=== PATIENT | male | born 1990 | race Caucasian/White ===

== ENCOUNTER 2021-02-07 15:34 | Emergency (ER) | payer MEDICAID ==
[~2021-02-07] VITALS: Ht 190.5 cm; Wt 117.9 kg
[2021-02-07 15:35] VITALS: BP 156/69
--- NOTE | 2021-02-07 15:36 | NUR ---
30 YO MALE BIBA FROM HOME C/O COFFEE GROUND EMESIS X1 DAY, 8/10 [place] PAIN X1 DAY, ETOH. PATIENT DRANK 1 BOTTLE OF GIN, 20 WHITE CLAWS YESTERDAY. PATIENT HAS BEEN SOBER FOR 2 YEARS, RELAPSED YESTERDAY. PATIENT APPEARS DIAPHORETIC, NO SHAKES OBSERVED, TACHYCARDIC, AND HYPERTENSIVE AT THIS TIME. ABDOMEN SOFT, FLAT, NON TENDER. BS ACTIVE X4. A&OX4, STEADY GAIT. RR EVEN AND UNLABORED. PMH ANXIETY NKDA
--- NOTE | 2021-02-07 15:45 | NUR ---
Tino LAINEZA via w/c to bed 05.
--- NOTE | 2021-02-07 15:46 | NUR ---
Wai cano in ED - 02/07/21 at 1913 by [facility] BIBA BLS TO ER BED 5
[2021-02-07] MEDS: hydrOXYzine 50 MG/ML VIAL IM ONE (16:10)
[2021-02-07] MEDS: ONDANSETRON 4 MG/2 ML VIAL IVP ONE (16:28)
--- NOTE | 2021-02-07 16:28 | NUR ---
LAB AT BEDSIDE FOR BLOOD SAMPLES.
[2021-02-07 16:34] LABS: BASOPHILS % (AUTO) 0.2 % (0.0-2.0); EOSINOPHILS % (AUTO) 0.4 % (0.0-4.0); HEMOGLOBIN 15.7 g/dL (12.0-18.0); LYMPHOCYTES # (AUTO) 3.2 K/uL (2.0-11.5); LYMPHOCYTES % (AUTO) 28.8 % (20.5-51.1); MEAN CORPUSCULAR HEMOGLOBIN 31 pg (27-31); MEAN CORPUSCULAR HGB CONC 34 g/dL (33-37); MONOCYTES % (AUTO) 8.9 % (1.7-9.3); NEUTROPHILS % (AUTO) 61.7 % (42.2-75.2); PLATELET COUNT (AUTO) 292 K/uL (140-450); RED BLOOD CELL COUNT(AUTO) 5.11 MIL/uL (4.20-6.10); RED CELL DISTRIBUTION WIDTH 12.8 % (11.6-13.7); WHITE BLOOD COUNT (AUTO) 11.3 K/uL (4.8-10.8)
[2021-02-07 16:46] LABS: ALBUMIN 3.7 g/dL (3.4-5.0); ANION GAP 16.3 (8-16); CARBON DIOXIDE 25.5 mmol/L (21-32); CREATININE 1.3 mg/dL (0.6-1.3); POTASSIUM 3.8 mmol/L (3.5-5.1); TOTAL BILIRUBIN 0.6 mg/dL (0.0-1.0)
[2021-02-07] MEDS: MULTIVITAMIN-12 10 ML, THIAMINE 100 MG, MAGNESIUM SULFATE 50% 2,000 MG, FOLIC ACID 1 MG... IV STA ×5 (16:51)
[2021-02-07] MEDS: HYDROXYZINE HYDROCHLORIDE 25 MG TAB PO STA (17:32)
[2021-02-07] MEDS ORDERED: ONDA-24 SL (17:59)
[2021-02-07 18:00] VITALS: BP 161/96
== END 2021-02-07 18:18 | disposition home or self-care (01) ==
LOC: MED 16:34
DX: K29.20 Alcoholic gastritis without bleeding (principal); R10.9 Unspecified abdominal pain; F32.9 Major depressive disorder, single episode, unspecified; Z79.899 Other long term (current) drug therapy
CPT/HCPCS: 36415; 74022; 80053; 85025; 96365; 96375; 99284; A9153; J2405; J3411; J3475; J3490; J7030; J3410